=== PATIENT | female | born 1950 | race Caucasian/White ===

== ENCOUNTER 2019-02-03 16:13 | Emergency (ER) | payer MEDICARE ==
[~2019-02-03] VITALS: Ht 167.6 cm; Wt 97.5 kg
[~2019-02-03 16:13] MED LIST: ALPR.5 PO; ASPI81CH PO; Adipex-P37.5 MG PO; Advil200 M1 PO; B-100 COMPLEX100 MG PO; BETA.1TL TOP; CEPH500 PO; CHOL10002; CITA20 PO; CODACE30 PO; CYAN100 PO; DULO60 PO; ESOM20; ESOM20 PO; FASTIN; FURO40 PO; Fruity C250 MG; IRON150C PO; JARDIANCE10 MG; LIVALO2 MG PO; METF500 PO; METF500C PO; MINO100 PO; MULVITMIND PO; Micro-K10 MEQ PO; NAPR500 PO; PIOG30 PO; PRAV20 PO; PROBIOTIC1 EAC1 PO; RXCLIN PO; Stool Softener100 MG PO; TOCO400 PO
[2019-02-03] MEDS ORDERED: JARDIANCE10 MG PO (16:28)
[2019-02-03] MEDS ORDERED: SITA100T2 PO (16:29)
[2019-02-03] MEDS ORDERED: Metformin HCl1000 MG PO (16:30)
[2019-02-03] MEDS ORDERED: LIVALO2 MG PO (16:31)
[2019-02-03] MEDS ORDERED: Cipro500 MG PO (16:44)
== END 2019-02-03 17:09 | disposition home or self-care (01) ==
LOC: ER 16:13
DX: H60.12 Cellulitis of left external ear (principal); Z88.8 Allergy status to other drugs, medicaments and biological substances; Z88.0 Allergy status to penicillin; Z88.2 Allergy status to sulfonamides; Z88.1 Allergy status to other antibiotic agents; Z79.899 Other long term (current) drug therapy; Z79.84 Long term (current) use of oral hypoglycemic drugs; E11.9 Type 2 diabetes mellitus without complications
CPT/HCPCS: 96372; 99282; J0696

== ENCOUNTER 2019-05-19 10:04 | Emergency (ER) | payer MEDICARE ==
[~2019-05-19] VITALS: Ht 167.6 cm; Wt 96.2 kg
[~2019-05-19 10:04] MED LIST changes: +Cipro500 MG PO; +JARDIANCE10 MG PO; +Metformin HCl1000 MG PO; +SITA100T2 PO
[2019-05-19] MEDS ORDERED: CEPH500 PO (10:52)
== END 2019-05-19 11:02 | disposition home or self-care (01) ==
LOC: ER 10:04
DX: H60.11 Cellulitis of right external ear (principal); E11.9 Type 2 diabetes mellitus without complications; Z88.0 Allergy status to penicillin; Z88.2 Allergy status to sulfonamides; Z88.1 Allergy status to other antibiotic agents; Z88.8 Allergy status to other drugs, medicaments and biological substances; Z79.899 Other long term (current) drug therapy; Z79.84 Long term (current) use of oral hypoglycemic drugs
CPT/HCPCS: 96372; 99282-25; J0696

== ENCOUNTER → 2020-03-09 | Outpatient (CLI) | payer MEDICARE | LOC: PLD 07:17 → LAB SHORT 07:17 | DX: D48.5 Neoplasm of uncertain behavior of skin (principal) | CPT/HCPCS: 88312 ==

== ENCOUNTER 2020-05-18 08:23 | Day surgery (SDC) | payer MEDICARE ==
[~2020-05-18] VITALS: Ht 167.6 cm; Wt 94.1 kg
[~2020-05-18 08:23] MED LIST changes: +ALBU90OI6 INH; +Aspir 8181 MG PO; +BIOTIN1 MG PO; +BYDUREON B2 MG/0.81; +CIME400 PO; +FERSU300 PO; +FLUO10 PO; +IBUP200 PO; +LIVALO4 MG PO; +MULTIVITAMINS1 EAC3 PO; +Prinivil10 MG PO; +TEMA7.5 PO; +TERB250 PO; +Vitamin D2000 UNIT PO
== END 2020-05-18 10:30 | disposition home or self-care (01) ==
LOC: ORSCSDS 08:23
PROVIDERS: Internal Medicine Gastroenterology
PROC: 0D757ZZ Dilation of Esophagus, Via Natural or Artificial Opening (ICD-10-PCS; principal; 2020-05-18 09:45)
PROC: 0DB58ZX Excision of Esophagus, Via Natural or Artificial Opening Endoscopic, Diagnostic (ICD-10-PCS; principal; 2020-05-18 09:45)
DX: R13.10 Dysphagia, unspecified (principal); R07.9 Chest pain, unspecified; K21.9 Gastro-esophageal reflux disease without esophagitis; E11.9 Type 2 diabetes mellitus without complications; K22.2 Esophageal obstruction; E66.9 Obesity, unspecified; Z68.33 Body mass index [BMI] 33.0-33.9, adult; Z79.82 Long term (current) use of aspirin; Z79.84 Long term (current) use of oral hypoglycemic drugs; Z79.899 Other long term (current) drug therapy
CPT/HCPCS: 82947; J2704; J7120

== ENCOUNTER 2023-03-16 09:23 | Day surgery (SDC) | payer MEDICARE ==
[~2023-03-16] VITALS: Ht 167.6 cm; Wt 92.3 kg
[~2023-03-16 09:23] MED LIST changes: +PIOG15
--- NOTE | 2023-03-16 10:02 | NUR ---
VOMITING AFTER PROCEEDURE
[2023-03-16] MEDS ORDERED: MELA3 PO (10:06)
[2023-03-16] MEDS ORDERED: FLUC150A PO (10:08)
[2023-03-16] MEDS ORDERED: JARDIANCE25 MG PO (10:08)
[2023-03-16] MEDS ORDERED: LIVALO4 MG PO (10:09)
--- NOTE | 2023-03-16 10:15 | NUR ---
03/16/23 1015 Claire Alonso AT 1007 PLEDGET AT 1010
[2023-03-16 11:15] VITALS: BP 111/55
--- NOTE | 2023-03-16 11:21 | NUR ---
03/16/23 1121 SHAHRZAD DRISCOLL IV REMOVED CANNULA INTACT, PT IFEOMA WELL. PT DENIES NAUSEA AND PAIN.
== END 2023-03-16 11:29 | disposition home or self-care (01) ==
LOC: ORSCSDS 09:23
PROVIDERS: Ophthalmology
PROC: 08RK3JZ Replacement of Left Lens with Synthetic Substitute, Percutaneous Approach (ICD-10-PCS; principal; 2023-03-16 11:00)
DX: E11.36 Type 2 diabetes mellitus with diabetic cataract (principal); H25.12 Age-related nuclear cataract, left eye; E66.9 Obesity, unspecified; Z68.32 Body mass index [BMI] 32.0-32.9, adult; K21.9 Gastro-esophageal reflux disease without esophagitis; I25.2 Old myocardial infarction; I10 Essential (primary) hypertension; Z79.85 Long-term (current) use of injectable non-insulin antidiabetic drugs; Z79.84 Long term (current) use of oral hypoglycemic drugs; Z79.899 Other long term (current) drug therapy
CPT/HCPCS: 82947; J2250; J3010; J3301; J7040; V2632

== ENCOUNTER 2023-03-23 09:02 | Day surgery (SDC) | payer MEDICARE ==
[~2023-03-23] VITALS: Ht 167.6 cm; Wt 92.1 kg
[~2023-03-23 09:02] MED LIST changes: +FLUC150A PO; +JARDIANCE25 MG PO; +MELA3 PO
--- NOTE | 2023-03-23 10:08 | NUR ---
03/23/23 1008 Nadege Harrington CORRECT EYE IDENTIFIED PER PT AND CONSENT RIGHT EYE. TETRICANE PLACED IN RIGHT EYE 0950. PLEGET IN RIGHT EYE AT 0951. CALL LIGHT WITHIN REACH.
[2023-03-23 11:03] VITALS: BP 113/63
--- NOTE | 2023-03-23 11:16 | NUR ---
03/23/23 1116 Isaac Escobar IV REMOVED INTACT. SITE WNL.
== END 2023-03-23 11:18 | disposition home or self-care (01) ==
LOC: ORSCSDS 09:02
PROVIDERS: Ophthalmology
PROC: 08RJ3JZ Replacement of Right Lens with Synthetic Substitute, Percutaneous Approach (ICD-10-PCS; principal; 2023-03-23 10:30)
DX: E11.36 Type 2 diabetes mellitus with diabetic cataract (principal); H25.11 Age-related nuclear cataract, right eye; Z96.1 Presence of intraocular lens; E78.5 Hyperlipidemia, unspecified; I10 Essential (primary) hypertension; J44.9 Chronic obstructive pulmonary disease, unspecified; K21.9 Gastro-esophageal reflux disease without esophagitis; E66.9 Obesity, unspecified; Z68.33 Body mass index [BMI] 33.0-33.9, adult; Z79.899 Other long term (current) drug therapy; Z79.85 Long-term (current) use of injectable non-insulin antidiabetic drugs; Z79.84 Long term (current) use of oral hypoglycemic drugs
CPT/HCPCS: 82947; J2250; J3010; J3301; J7040; V2632

== ENCOUNTER 2024-05-09 08:43 | Day surgery (SDC) | payer MEDICARE ==
[2024-05-09] VITALS (14 sets, daily range): BP systolic 116–140; BP diastolic 60–118
[~2024-05-09] VITALS: Ht 167.6 cm; Wt 85.7 kg
[~2024-05-09 08:43] MED LIST changes: +1/2 NS 250ml250 ML; +Cymbalta20 MG PO; +FAMO40 PO; +NS 500 ML IV SCH; +OZEMPIC0.25 MG/02
[2024-05-09] MEDS ORDERED: CALCIUM 1,0001 EAC1 PO (09:17)
[2024-05-09] MEDS ORDERED: Benzocaine Oral Spray 0.5ML UD ONE (09:31)
[2024-05-09] MEDS ORDERED: propofoL 20 ML IV ONE (09:31)
--- NOTE | 2024-05-09 09:37 | NUR ---
05/09/24 0937 Maggie Luciano CONFIRMED AND REVIEWED H&P, MEDCICATIONS, ALLERGIES, MEDICAL HISTORY, RESPIRATORY HISTORY, VITAL SIGNS, 3-LEAD EKG, CONSENTS, AND PHYSICIAN ORDERS. PATIENT CONFIRMS NPO STATUS AND AGREES WITH SCHEDULED PROCEDURE. MONITOR INTACT WITH CONTINUOUS PULSE OXIMETRY, CAPNOGRAPHY, 3-LEAD EKG, INTERMITTENT BP. SUPPLEMENTAL O2 TO BE TITRATED THROUGHOUT PROCEDURE TO MAINTAIN O2 SATURATION ABOVE 90%. PATIENT DETERMINED TO BE ASA APPROPRIATE FOR PROPOFOL SEDATION PRIOR TO START OF PROCEDURE BY DR. GALLO. MALLAMPATI CLASS 1 AIRWAY: COMPLETE VISULATIZATION OF THE SOFT PALATE.
== END 2024-05-09 10:25 | disposition home or self-care (01) ==
LOC: ORSCMMR 08:43 → ORD 09:30 → ORSCMMR 10:25
PROVIDERS: Internal Medicine Gastroenterology
PROC: 0DB68ZX Excision of Stomach, Via Natural or Artificial Opening Endoscopic, Diagnostic (ICD-10-PCS; principal; 2024-05-09 09:30)
DX: Z85.038 Personal history of other malignant neoplasm of large intestine (principal); K29.70 Gastritis, unspecified, without bleeding; I10 Essential (primary) hypertension; E11.9 Type 2 diabetes mellitus without complications; Z79.84 Long term (current) use of oral hypoglycemic drugs; Z79.899 Other long term (current) drug therapy
CPT/HCPCS: 82947; 88305; 88341; 88342; A9270; J2704; J7040

== ENCOUNTER 2024-10-29 08:17 | Day surgery (SDC) | payer MEDICARE ==
--- NOTE | 2024-10-28 14:06 | NUR ---
MEDICATIONS, ALLERGIES AND MEDICAL HISTORY REVIEWED WITH PATIENT OVER THE PHONE, IN PREPARATION FOR SCHEDULED PROCEDURE 10/29/[address] CAPPS.
[2024-10-29] VITALS (12 sets, daily range): BP systolic 104–139; BP diastolic 57–104
[~2024-10-29] VITALS: Wt 88.0 kg
[~2024-10-29 08:17] MED LIST changes: +CALCIUM 1,0001 EAC1 PO; +DOXY100 PO; +FARXIGA5 MG PO; +FARYDAK10 MG PO; +Lactated Ringer's 1,000 ML IV SCH; -NS 500 ML IV SCH; +OZEMPIC0.25 MG/02 SQ; -PIOG15; +PIOG15 PO
[2024-10-29] MEDS ORDERED: propofoL 40 ML IV ONE (09:01)
[2024-10-29] MEDS ORDERED: Benzocaine Oral Spray 0.5ML UD ONE (09:01)
--- NOTE | 2024-10-29 09:12 | NUR ---
10/29/24 0912 Maggie Luciano CONFIRMED AND REVIEWED H&P, MEDCICATIONS, ALLERGIES, MEDICAL HISTORY, RESPIRATORY HISTORY, VITAL SIGNS, 3-LEAD EKG, CONSENTS, AND PHYSICIAN ORDERS. PATIENT CONFIRMS NPO STATUS AND AGREES WITH SCHEDULED PROCEDURE. MONITOR INTACT WITH CONTINUOUS PULSE OXIMETRY, CAPNOGRAPHY, 3-LEAD EKG, INTERMITTENT BP. SUPPLEMENTAL O2 TO BE TITRATED THROUGHOUT PROCEDURE TO MAINTAIN O2 SATURATION ABOVE 90%. PATIENT DETERMINED TO BE ASA APPROPRIATE FOR PROPOFOL SEDATION PRIOR TO START OF PROCEDURE BY DR. CAPPS.
--- NOTE | 2024-10-29 10:02 | NUR ---
Patient up to Ambulate independently. Gait steady. Discharge instructions reviewed with patient. Patient verbalizes understanding. Copy given to patient to take home, WELL FAMILY. Patient States Post-Procedure ride home has been arranged. Discharged via wheelchair to private car for ride home. PT REPORTS THROAT A LITTLE SORE WHEN DRIVING, REPORTS READY TO GO HOME. FAMILY BEEN HERE AT BEDSIDE. DR CAPPS BEEN TO SEE PT, REPORTS KEEP F/U. PT REPORTED TO HAVE DILATION.
== END 2024-10-29 10:02 | disposition home or self-care (01) ==
LOC: ORSCMMR 08:17 → ORD 09:00 → ORSCMMR 10:02
PROVIDERS: Internal Medicine Gastroenterology
PROC: 0DB48ZX Excision of Esophagogastric Junction, Via Natural or Artificial Opening Endoscopic, Diagnostic (ICD-10-PCS; principal; 2024-10-29 09:00)
DX: R13.10 Dysphagia, unspecified (principal); K21.9 Gastro-esophageal reflux disease without esophagitis; K29.70 Gastritis, unspecified, without bleeding; K44.9 Diaphragmatic hernia without obstruction or gangrene; Z85.060 Personal history of malignant carcinoid tumor of small intestine; E11.9 Type 2 diabetes mellitus without complications; I10 Essential (primary) hypertension; F32.A Depression, unspecified; E78.00 Pure hypercholesterolemia, unspecified; Z79.85 Long-term (current) use of injectable non-insulin antidiabetic drugs; Z79.84 Long term (current) use of oral hypoglycemic drugs; Z79.899 Other long term (current) drug therapy
CPT/HCPCS: 82947; 88305; A9270; C1726; J2704; J7120